=== PATIENT | female | born 1965 | race Caucasian/White ===

== ENCOUNTER 2022-09-02 15:07 | Outpatient (CLI) | payer OTHER | END 2022-09-02 15:08 | disposition home or self-care (01) | LOC: CSHMAMMO 15:07 | PROVIDERS: ATTEND Obstetrics & Gynecology | DX: Z12.31 Encounter for screening mammogram for malignant neoplasm of breast (principal); Z80.3 Family history of malignant neoplasm of breast | CPT/HCPCS: 77063; 77067 ==

== ENCOUNTER 2023-10-26 11:06 | Outpatient (CLI) | payer OTHER | END 2023-10-26 11:07 | disposition home or self-care (01) | LOC: CSHMAMMO 11:06 | PROVIDERS: ATTEND Obstetrics & Gynecology | DX: Z12.31 Encounter for screening mammogram for malignant neoplasm of breast (principal); Z80.3 Family history of malignant neoplasm of breast | CPT/HCPCS: 77063; 77067 ==